=== PATIENT | male | born 1955 | race Caucasian/White ===

== ENCOUNTER → 2020-09-14 | Outpatient (CLI) | payer BC, MEDICARE ==
[2020-09-14 14:00] LABS: African American GFR (CKD) >90 (>60 ml/min/1.73 sqM); Blood Urea Nitrogen 11 mg/dL (9-20); Non-African American GFR(CKD) >90 (>60 ml/min/1.73 sqM)
--- NOTE | 2020-09-14 16:16 | CT ---
EXAMINATION TYPE: CT abdomen pelvis w con DATE OF EXAM: 09/14/2020 COMPARISON: None. HISTORY: RUQ pain x [address] DLP: 1711.10 mGycm, Automated Exposure Control for Dose Reduction was Utilized. CONTRAST: CT scan of the abdomen and pelvis is performed without oral and with IV Contrast, patient injected wi th 100ml mL of Isovue 300. FINDINGS: LUNG BASES: [id number] linear scarring and/or atelectasis posterior left lung base. LIVER/GB: Cholecystectomy clips. PANCREAS: No significant abnormality is seen. SPLEEN: No significant abnormality is seen. ADRENALS: No significant abnormality is seen. KIDNEYS: Symmetric cortical medullary uptake and excretion without hydronephrosis seen bilaterally. T here is 4.0 cm thin-walled cyst in the left kidney mid to lower pole level series 5 image 44. BOWEL: Surgical sutures from partial proximal colectomy and small bowel anastomosis. No suspicious sm all or large bowel dilatation. PROSTATE/SEMINAL VESICLES: Normal-sized prostate. LYMPH NODES: No greater than 1cm abdominal or pelvic lymph nodes are appreciated. OSSEOUS STRUCTURES: No significant abnormality is seen. OTHER: There is large [place] ventral wall hernia containing fat and mesenteric vessels along with small and large bowel loops extending left of midline above the umbilicus. There is vertical midline scar near level of umbilicus extending inferiorly. There are tiny peripheral clips from prior surgica l repair. Second smaller eventration right infraumbilical level axial image 67 noted. Prominent collateral vessels in the left upper to mid abdomen are identified. IMPRESSION: Large [place] fat wall hernia superior to umbilicus site of prior attempted surgical re pair. Prominent collateral vessels left upper to mid abdomen of uncertain etiology and clinical signi ficance. No acute findings clearly seen to account for patient's symptoms of right upper quadrant guanako n.
== END | disposition home or self-care (01) ==
LOC: RADCTMAIN 13:18
PROVIDERS: ATTEND Internal Medicine
DX: K43.9 Ventral hernia without obstruction or gangrene (principal)
CPT/HCPCS: 82565; 84520; 74177; 36415; Q9967

== ENCOUNTER → 2022-10-31 | Outpatient (CLI) | payer MEDICARE ==
[2022-10-31 10:03] VITALS: BP 137/76; PULSE 86; RESP 16; TEMP 98.1
--- NOTE | 2022-10-31 14:31 | P.PAINPG ---
PQRS Measure Charge Sheet Comment: HISTORY OF PRESENT ILLNESS: 67 yr old male w at side as a referral from Dr Ana Samayoa presents today w severe and chronic RUQ abdominal pain secondary to Trauma from abdominal adhesions for evaluation. Pt states pain level is provoked at 7 /10 in intensity, constant, localized in the RUQ, sharp in character w shooting pain towards the epigastric / LUQ as well as the back. Pain is provoked by standing bending or walking. Pain is alleviated by PT x -12 wks in 2021, heat, mediations (Neurontin, Tyl), CBD edibles, topical, repositioning and rest. Oswestry axial pain score at 31. PMH: OA, HTN, Portal Vein HTN, DM II, GERD, IBS, Vitamin D Deficiency PSH: Abdominal Hernia Repair, Vental Wall Hernia Repair, Cholecystitis SH: Hx of Tobacco use, Hx of ETOH use, No illicit drg use. . FH: Noncontributory All: See list Meds: See list REVIEW OF ORGAN SYSTEMS: CONSTITUTIONAL: No fevers or chills. No recent weight loss. NEUROLOGICAL: + numbness and tingling along the distal extremities. No seizure disorders or headaches. MUSCULOSKELETAL: + pain PSYCHIATRIC: Denies current depression or suicidal thoughts. Physical Examinations : Constitutional : Cooperative , not in acute distress . Neurologic : Cranial nerve II to XII intact. No focal neurological deficits. Psychiatric : alert & oriented x 3. Matching mood & appropriate affect. Judgment & insight intact. Musculoskeletal : RUQ TTP Cervical Spine Motor strength in the deltoid and biceps: Normal right side. Normal Left side Motor strength biceps and the wrist extensors: Normal right side . Normal left side Motor strength in the triceps muscle: Normal right side. Normal left side Deep tendon reflexes: Normal at the biceps. Normal at Brachioradialis. Normal at triceps Vertebral body tenderness to deep palpation over Cervical facet loading test: positive bilaterally Spurling test: positive bilaterally Neck distraction test: positive bilaterally Janice sign: positive bilaterally Lumbar spine Motor strength lower extremities ,thigh and legs 5/5 Right side , 5/5 Left side Deep tendon reflexes : Normal Knee Jerk. Normal Ankle Jerk Vertebral body tenderness over Lindsey Test positive Lumbar facet Loading Test: positive Right / positive Left Range of motion of the lumbar spine Flexion 30 degrees, extension 10 degrees Straight Leg Raise test: Left/ Right positive at degree Ryan test: positive right / positive left. Severe tenderness over the Sacroiliac joint on the Right / Left sides Gaenslen test: positive bilaterally Seated flexion test: positive bilaterally. Sacral spine : Severe tenderness over the Sacroiliac joint: right side / left side Range of motion: Flexion of the lumbar spine <60 degrees Range of motion: Extension of the lumbar spine <20 degrees Gaenslen's Test positive Pasquale's Test positive Ryan test: positive right side / left side Thigh Thrust Test Sacral Thrust Test Imaging: CT with contrast of the abdomen from 09/22/22 reviewed Assessment/ Plan : RUQ pain secondary to abdominal trauma, adhesions Recommendation of David RIOS. May need a series of injections for optimal pain relief. Risks, benefits of procedure discussed and patient verbalized understanding. Admits to aspirin or anti- coagulant use or medical history of diabetes. Protocol for discontinuation/ continuation of medications jennifer procedure discussed. Minimal anesthesia provided, if clinically indicated, consisting of Versed and Fentanyl. All questions answered. I have spent greater than 30 minutes on patient care today. Dr Chatterjee was available by phone for the evaluation of this patient. The time was used to review the medical records including relevant urine studies and Prescription hi story (MAPs), review of the available imaging, evaluation and examination of the patient, coordination of care with the medical staff and if applicable referring physicians, as well as creation of the medical record Controlled Substance Measures - Controlled Substance Measures Is patient prescribed a controlled substance at discharge?: Yes When asked, does pt state using other controlled substances?: Yes If prescribed controlled substance>3 days was MAPS reviewed?: Prescribed <3 Days If Rx opioid, was Start Talking consent form obtained?: Yes If opioid is for acute pain is fill amount 7 days or less?: Yes Was information provided regarding opioid addiction?: Yes
== END ==
LOC: PNWHC3 09:01
PROVIDERS: ATTEND Specialist
DX: K66.0 Peritoneal adhesions (postprocedural) (postinfection) (principal); M19.90 Unspecified osteoarthritis, unspecified site; E11.9 Type 2 diabetes mellitus without complications; K21.9 Gastro-esophageal reflux disease without esophagitis; K76.6 Portal hypertension; Z88.0 Allergy status to penicillin; Z91.011 Allergy to milk products; Z88.8 Allergy status to other drugs, medicaments and biological substances; Z79.899 Other long term (current) drug therapy; Z79.4 Long term (current) use of insulin; Z79.01 Long term (current) use of anticoagulants; S39.91XA Unspecified injury of abdomen, initial encounter; X58.XXXA Exposure to other specified factors, initial encounter
CPT/HCPCS: 99211

== ENCOUNTER → 2022-11-15 | Day surgery (SDC) | payer MEDICARE ==
[~2022-11-15] MED LIST: IOPAMIDOL M200 10 ML VIAL ONE; LACTATED RINGERS 1,000 ML IV ONE; LACTATED RINGERS 1,000 ML IV SCH; LIDOCAINE 1% (10MG/ML) FOR IV START INTRADERMA PRN; MIDAZOLAM 2 MG/2 ML VIAL ONE; ROPIVACAINE 5 MG/ML 20 ML AMPULE ONE; fentaNYL (PF) 50 MCG/ML 2 ML AMP ONE; methylPREDNISolone ACETATE 40 MG/ML 1 ML VIAL ONE
[2022-11-15 07:36] VITALS: TEMP 97.5
[2022-11-15 07:38] LABS: Glucose,Whole Blood 147 mg/dL (70-110)
[2022-11-15 07:47] LABS: INR 1.1 (<1.2); Prothrombin Time 11.3 sec (9.0-12.0)
--- NOTE | 2022-11-15 09:27 | P.PCN ---
Date of Procedure: 11/15/22 Procedure(s) Performed: PREOPERATIVE DIAGNOSIS: Chronic severe abdominal pain. Secondary to abdominal adhesions POSTOPERATIVE DIAGNOSIS: Chronic severe abdominal pain. Secondary to abdominal adhesions PROCEDURE: Diagnostic celiac plexus block under fluoroscopy guidance (fluoroscopy images available in the audiology Department ) ANESTHESIA: Moderate sedation with Versed 3 mg and Fentanyl 100 Mcg , sedation started 08:38, and ended at 08:52 EBL: Minimal PROCEDURE INDICATION: The patient has a history of abdominal pain secondary to multiple abdominal surgery with the scar tissue that is non responsive to more conservative treatments. PROCEDURE DESCRIPTION: The patient was seen and identified in the preoperative area. Risks, benefits, complications, and alternatives were discussed with the patient. The patient agreed to proceed with the procedure and signed the consent. IV was started, and vital signs were stable.Patient was taken to the OR and time out was completed.The patient was placed in the prone position on procedure table and a pillow was placed under the abdomen to reduce lumbar lordosis. The lumbosacral area was prepped and draped in the usual sterile fashion. Critical pause was taken. Vital signs were closely monitored during the procedure. Conscious sedation was used during the procedure to decrease patients anxiety. The procedure was performed in a similar fashion on the right side and on the left side. Using anterior-posterior fluoroscopy, the L1 spinous process and vertebral body were identified. Then, the fluoroscope was turned obliquely until the transverse process of L1 vertebra was totally behind the L1 vertebral body. Skin was then marked and infiltrated with Lidocaine 1% subcutaneously with a 25-guage needle at the level of the L1 vertebral body. Subsequently, a 20-guage 6 -inch spinal needles was inserted and advanced toward anterior side of the L1 vertebral body under oblique fluoroscopic guidance and while keeping a ``tunnel view of the needle. Subsequently, 3 ml of the water soluble dye Omnipaque was injected under life fluoroscopy to confirm needle position. The spread of the dye along the anterior side of the L1 vertebral body was verified with AP and latter fluoroscopy. After satisfactory positioning of the needle and negative aspiration for CSF, blood, or any other contents, a total of 15 mL of 0.25 % preservative-free ropivacaine mixed with 20 mg of Depo-Medrol was injected with 5 ml increments and intermittent aspiration. Washout of the dye was seen and the needle was then withdrawn intact. Procedure was done bilaterally using the same technique on the right and left sides. A total of 30 ml of 0.25% preservative- free ropivacaine was used during the procedure.At the end of the procedure, the operated areas were cleaned. Band-Aids were applied. COMPLICATIONS: None DISPOSITION / PLANS: The patient was placed in a supine position and transferred to the recovery area in a stable condition for observation and was discharged from the recovery room after meeting discharge criteria.Home discharge instructions given to the patient by the staff.The patient was reexamined prior to discharge. We will schedule a neurolytic block in one week if patient has more than 50% pain relief from this block.
[2022-11-15 09:48] VITALS: BP 117/64; PULSE 77; RESP 14
--- NOTE | 2022-11-15 10:17 | FL ---
Intraoperative/procedural fluoroscopic services were provided. Total fluoroscopy time is 16 seconds w ith a total of 4 submitted images to PACS. Please see the operative/procedural note for further detai ls. DAP: [id number] mGym2
== END ==
LOC: ORPAIN 07:07
PROVIDERS: ATTEND Specialist
DX: G89.29 Other chronic pain (principal); F41.9 Anxiety disorder, unspecified; K66.0 Peritoneal adhesions (postprocedural) (postinfection); Z88.0 Allergy status to penicillin; R10.13 Epigastric pain
CPT/HCPCS: 85610; 64530; 99152; 99153; J2250; J1030; J3010; Q9966; J2795

== ENCOUNTER → 2022-12-08 | Outpatient (CLI) | payer MEDICARE ==
[2022-12-08 09:32] VITALS: BP 134/82; PULSE 76; RESP 15; TEMP 98.2
--- NOTE | 2022-12-08 13:10 | P.PAINPG ---
Objective - Vital Signs Vital signs: Intake & Output 12/07/22 12/08/22 12/08/22 18:59 06:59 18:59 Weight 119.295 kg PQRS Measure Charge Sheet Comment: HISTORY OF PRESENT ILLNESS: 67 yr old male w at side presents today w severe and chronic L hip pain secondary to OA for evaluation. Pt underwent a celiac plexus nerve blocks and states he experienced 70% pain relief for the last 3 wks s/p procedure. Pt states pain level is provoked at 10 /10 in intensity, constant, localized in the L hip, achy in character without shooting pain. Pain is provoked by sitting. Pain is alleviated by PT x -12 wks in 2021, heat, medications, CBD edibles, topical, repositioning and rest. Oswestry axial pain score at 23. Interventional procedures include celiac plexus nerve block x1 Medications include Neurontin, Tyl REVIEW OF ORGAN SYSTEMS: CONSTITUTIONAL: No fevers or chills. No recent weight loss. NEUROLOGICAL: + numbness and tingling along the distal extremities. No seizure disorders or headaches. MUSCULOSKELETAL: + pain PSYCHIATRIC: Denies current depression or suicidal thoughts. Physical Examinations : Constitutional : Cooperative , not in acute distress . Neurologic : Cranial nerve II to XII intact. No focal neurological deficits. Psychiatric : alert & oriented x 3. Matching mood & appropriate affect. Judgment & insight intact. Musculoskeletal : Cervical Spine Motor strength in the deltoid and biceps: Normal right side. Normal Left side Motor strength biceps and the wrist extensors: Normal right side . Normal left side Motor strength in the triceps muscle: Normal right side. Normal left side Deep tendon reflexes: Normal at the biceps. Normal at Brachioradialis. Normal at triceps Vertebral body tenderness to deep palpation over Cervical facet loading test: positive bilaterally Spurling test: positive bilaterally Neck distraction test: positive bilaterally Janice sign: positive bilaterally Lumbar spine Motor strength lower extremities ,thigh and legs 5/5 Right side , 5/5 Left side Deep tendon reflexes : Normal Knee Jerk. Normal Ankle Jerk Vertebral body tenderness over Lindsey Test positive Lumbar facet Loading Test: positive Right / positive Left Range of motion of the lumbar spine Flexion 30 degrees, extension 10 degrees Straight Leg Raise test: Left/ Right positive at degree Ryan test: positive right / positive left. Severe tenderness over the Sacroiliac joint on the Right / Left sides Gaenslen test: positive bilaterally Seated flexion test: positive bilaterally. Sacral spine : Severe tenderness over the Sacroiliac joint: right side / left side Range of motion: Flexion of the lumbar spine <60 degrees Range of motion: Extension of the lumbar spine <20 degrees Gaenslen's Test positive on L Ryan test: positive right side / left side Thigh Thrust Test positive on L Sacral Thrust Test Imaging: CT with contrast of the abdomen from 09/22/22 reviewed Assessment/ Plan : L hip pain secondary to OA Recommendation of L SI injection. May need a series of injections for optimal pain relief. Risks, benefits of procedure discussed and patient verbalized understanding. Admits to aspirin or anti- coagulant use or medical history of diabetes. Protocol for discontinuation/ continuation of medications jennifer procedure discussed. Minimal anesthesia provided, if clinically indicated, consisting of Versed and Fentanyl. All questions answered. I have spent greater than 30 minutes on patient care today. Dr Chatterjee was available by phone for the evaluation of this patient. The time was used to review the medical records including relevant urine studies and Prescription history (MAPs), review of the available imaging, evaluation and examination of the patient, coordination of care with the medical staff and if applicable referring physicians, as well as creation of the medical record PQRS Narrative: Hx Alcohol Use (MH) No Home Medications: Ambulatory Orders Acetaminophen [Tylenol Arthritis] 650 mg PO HS PRN 10/31/22 Acetaminophen-Codeine 300-30mg [Tylenol w/codeine #3] 1 tab PO Q4H PRN 3 Days #18 tablet 10/31/22 Atorvastatin [Lipitor] 10 mg PO HS 10/31/22 Cholestyramine (with Sugar) [Cholestyramine Packet] 4 gm PO BID 10/31/22 Dapagliflozin Propanediol [Farxiga] 10 mg PO DAILY 10/31/22 Dicyclomine [Bentyl] 20 mg PO BID 10/31/22 Exenatide Microspheres [Bydureon Bcise Auto-Injector] 2 mg SQ Q7D 10/31/22 Gabapentin [Neurontin] 300 mg PO TID 10/31/22 Hyoscyamine Sulfate [Levsin] 0.125 mg PO Q4HR PRN 10/31/22 Insulin Glargine,Hum.rec.anlog [Basaglar Kwikpen U-100] 35 unit SQ BID 10/31/22 Insulin Lispro [humaLOG Kwikpen] 10 unit SQ AC-BID 10/31/22 Magnesium Oxide [Magnesium] 500 mg PO TID 10/31/22 Meclizine [Antivert] 25 mg PO DIRECTED PRN 10/31/22 Metoprolol Succinate (ER) [Toprol Xl] 50 mg PO DAILY 10/31/22 Omeprazole [PriLOSEC] 20 mg PO AC-BID 10/31/22 Pioglitazone [Actos] 15 mg PO DAILY 10/31/22 Warfarin [Coumadin] 5 mg PO DAILY 10/31/22 azaTHIOprine [Imuran] 100 mg PO DAILY 10/31/22 hydrOXYzine HCL [Atarax] 50 mg PO HS PRN 10/31/22 ondansetron HCL [Zofran] 8 mg PO Q8HR PRN 10/31/22 Controlled Substance Measures - Controlled Substance Measures Is patient prescribed a controlled substance at discharge?: No
== END ==
LOC: PNWHC3 09:04
PROVIDERS: ATTEND Specialist
DX: M16.12 Unilateral primary osteoarthritis, left hip (principal); Z91.018 Allergy to other foods; Z88.0 Allergy status to penicillin; Z91.011 Allergy to milk products; Z91.048 Other nonmedicinal substance allergy status
CPT/HCPCS: 99211

== ENCOUNTER → 2023-01-19 | Outpatient (CLI) | payer MEDICARE ==
[2023-01-19 11:59] VITALS: BP 143/81; PULSE 75; RESP 16; TEMP 98.4
== END ==
LOC: PNWHC3 11:19
PROVIDERS: ATTEND Specialist
DX: M46.1 Sacroiliitis, not elsewhere classified (principal); Z88.8 Allergy status to other drugs, medicaments and biological substances; Z88.0 Allergy status to penicillin; Z91.011 Allergy to milk products
CPT/HCPCS: 99211

== ENCOUNTER 2023-03-28 15:33 | Emergency (ER) | payer MEDICARE ==
--- NOTE | 2023-03-28 16:17 | ED ---
Abdominal Pain HPI - General Source: patient, RN notes reviewed <Nicole Blakely - Last Filed: 03/28/23 16:17> - General Source: patient, RN notes reviewed Mode of arrival: ambulatory Limitations: no limitations - History of Present Illness MD Complaint: abdominal pain <Alicia Moore - Last Filed: 03/29/23 19:48> - General Chief Complaint: Abdominal Pain Stated Complaint: Abd Pain Time Seen by Provider: 03/28/23 16:17 - History of Present Illness Initial Comments: Patient is a 67-year-old male presented ER with chief complaint of back pain that radiates to his abdomen. Patient reports it feels like something has popped in his back. Patient does report that he has a history of a kidney cyst. Patient denies any fevers, chills, night sweats, placenta paresthesias, IV drug use, bowel or bladder incontinent. (Nicole Blakely) This is a 67-year-old male who presents to the emergency department for abdominal pain. States that this is in the right mid back and wraps around to the right mid abdomen. He does have associated nausea and vomiting, and took Zofran in the waiting room which he felt was helpful. He has a history of kidney cysts, but denies any history of kidney stones. He has no changes in urinary or bowel habits. Reports an extensive surgical history related to Crohn's disease, which has been managed at the [facility]. He no longer has his gallbladder or appendix. He does have a large hernia as a result of multiple surgeries. (Alicia Moore) - Related Data Home Medications Medication Instructions Recorded Confirmed Acetaminophen [Tylenol Arthritis] 650 mg PO HS PRN 10/31/22 01/19/23 Atorvastatin [Lipitor] 10 mg PO HS 10/31/22 01/19/23 Cholestyramine (with Sugar) 4 gm PO BID 10/31/22 01/19/23 [Cholestyramine Packet] Dapagliflozin Propanediol [Farxiga] 10 mg PO DAILY 10/31/22 01/19/23 Dicyclomine [Bentyl] 10 mg PO BID 10/31/22 01/19/23 Exenatide Microspheres [Bydureon 2 mg SQ Q7D 10/31/22 01/19/23 Bcise Auto-Injector] Gabapentin [Neurontin] 300 mg PO TID 10/31/22 01/19/23 Hyoscyamine Sulfate [Levsin] 0.125 mg PO Q4HR PRN 10/31/22 01/19/23 Insulin Glargine,Hum.rec.anlog 35 unit SQ BID 10/31/22 01/19/23 [Basaglar Kwikpen U-100] Insulin Lispro [humaLOG Kwikpen] 10 unit SQ AC-BID 10/31/22 01/19/23 Magnesium Oxide [Magnesium] 500 mg PO TID 10/31/22 01/19/23 Meclizine [Antivert] 25 mg PO DIRECTED PRN 10/31/22 01/19/23 Metoprolol Succinate (ER) [Toprol 50 mg PO DAILY 10/31/22 01/19/23 Xl] Omeprazole [PriLOSEC] 20 mg PO AC-BID 10/31/22 01/19/23 Pioglitazone [Actos] 15 mg PO DAILY 10/31/22 01/19/23 Warfarin [Coumadin] 5 mg PO DAILY 10/31/22 01/19/23 azaTHIOprine [Imuran] 100 mg PO DAILY 10/31/22 01/19/23 hydrOXYzine HCL [Atarax] 50 mg PO HS PRN 10/31/22 01/19/23 ondansetron HCL [Zofran] 8 mg PO Q8HR PRN 10/31/22 01/19/23 Previous Rx's Medication Instructions Recorded Ibuprofen 800 mg PO Q8H PRN #30 tab 03/29/23 methocarbamoL [Robaxin-750] 1,500 mg PO TID PRN #30 tab 03/29/23 Allergies Allergy/AdvReac Type Severity Reaction Status Date / Time capsaicin [From Capzasin] Allergy EXTREME Verified 03/28/23 16:35 BURNING,RED WELTING PAIN menthol [From Capzasin] Allergy EXTREME Verified 03/28/23 16:35 BURNING,RED WELTING PAIN Penicillins Allergy HIVES & Verified 03/28/23 16:35 SWELLING lactose AdvReac Diarrhea Verified 03/28/23 16:35 Review of Systems ROS Other: All systems not noted in ROS Statement are negative. <Nicole Blakely - Last Filed: 03/28/23 16:17> ROS Other: All systems not noted in ROS Statement are negative. <Alicia Moore - Last Filed: 03/29/23 19:48> ROS Statement: Those systems with pertinent positive or pertinent negative responses have been documented in the HPI. Past Medical History Past Medical History: Cancer, Diabetes Mellitus, Eye Disorder, GERD/Reflux, Liver Disease, Pulmonary Embolus (PE) Additional Past Medical History / Comment(s): heart rate issues per he gets short of breath with ambulation at times , crohn's, non alcholic cirrohis, legally blind,squamous cell carcinomas removed, pe crohn's surgery, pain radiating rt abdomen thru back and now going down his left leg. History of Any Multi-Drug Resistant Organisms: MRSA Date of last positivie culture/infection: 2013 MDRO Source:: abdomen Past Surgical History: Hernia Repair Additional Past Surgical History / Comment(s): crohn's surgery x4, fatty tumor from leg , Past Anesthesia/Blood Transfusion Reactions: No Reported Reaction Additional Psychological History / Comment(s): claustraphobic Smoking Status: Former smoker Past Alcohol Use History: None Reported Additional Past Alcohol Use History / Comment(s): quit smoking 2019, Past Drug Use History: Marijuana Additional Drug Use History / Comment(s): cbd gummies refrain 24 hours prior to procedure - Past Family History Mother Family Medical History: Cancer, Deep Vein Thrombosis (DVT) Additional Family Medical History / Comment(s): skin Brother(s) Family Medical History: Cancer Additional Family Medical History / Comment(s): esophageal,prostate <Nicole Blakely - Last Filed: 03/28/23 16:17> General Exam General appearance: alert, in no apparent distress <Nicole Blakely - Last Filed: 03/28/23 16:17> General appearance: alert, in no apparent distress Head exam: Present: atraumatic, normocephalic, normal inspection Respiratory exam: Present: normal lung sounds bilaterally. Absent: respiratory distress, wheezes, rales, rhonchi, stridor Cardiovascular Exam: Present: regular rate, normal rhythm, normal heart sounds. Absent: systolic murmur, diastolic murmur, rubs, gallop, clicks GI/Abdominal exam: Present: soft, tenderness (RUQ and right mid abdomen). Absent: distended Back exam: Present: CVA tenderness (R) Neurological exam: Present: alert, oriented X3, CN II-XII intact Psychiatric exam: Present: normal affect, normal mood Skin exam: Present: warm, dry, intact, normal color. Absent: rash <Alicia Moore - Last Filed: 03/29/23 19:48> Course Vital Signs 03/28/23 03/29/23 03/29/23 16:32 01:24 03:32 Temperature 98.2 F Pulse Rate 68 73 77 Respiratory 18 18 18 Rate Blood Pressure 124/73 152/82 147/79 O2 Sat by Pulse 95 93 L 93 L Oximetry Medical Decision Making <Nicole Blakely - Last Filed: 03/28/23 16:17> - Lab Data Result diagrams: 03/28/23 16:36 03/28/23 16:36 - Radiology Data Radiology results: report reviewed, image reviewed <Alicia Moore - Last Filed: 03/29/23 19:48> - Medical Decision Making I performed the quick note portion of the exam. Electronically signed by Nicole Blakely PA-C (Nicole Blakely) This is a 67-year-old male who presents to the emergency department for abdominal and flank pain. Was pt. sent in by a medical professional or institution? @ -No Did you speak to anyone other than the patient for history? @ -No Did you review nursing and triage notes? @ -Yes, and I agree, it is accurate with regards to the patient's symptoms. Were old charts reviewed? @ -No Differential Diagnosis? @ -Differential Abdominal Pain Men: Appendicitis, cholecystitis, diverticulosis, ischemic bowel, pancreatitis, hepatitis, UTI, gastroenteritis, AAA, incarcerated hernia, bowel obstruction, constipation, inflammatory bowel, hepatitis, peptic ulcer disease, splenic infarction, perforated viscus, testicular torsion, this is not meant to be an all-inclusive list EKG interpreted by me (3pts min.)? @ -EKG interpreted by me demonstrating the following: Sinus rhythm. Ventricular rate 67 bpm, AK interval 309 ms, QRS duration 84 ms, QTC 418 ms. X-rays interpreted by me (1pt min.)? @ -Not obtained CT interpreted by me (1pt min.)? @ -Computed tomography scan of the abdomen and pelvis obtained. My interpretation identifies no evidence of a ureteral calculus. U/S interpreted by me (1pt. min.)? @ -Not obtained What testing was considered but not performed? (CT, X-rays, U/S, labs)? Why? @ -None What meds were considered but not given? Why? @ -None Did you discuss the management of the patient with other professionals? @ -No Did you reconcile home meds? @ -No Was smoking cessation discussed for >3mins.? @ -No Was critical care preformed (if so, how long)? @ -No Were there social determinants of health that impacted care today? How? (Homelessness, low income, unemployed, alcoholism, drug addiction, transportation, low edu. Level, literacy, decrease access to med. care, retirement, rehab)? @ -No Was there de-escalation of care discussed even if they declined? (Discuss DNR or withdrawal of care, Hospice)? @ -No What co-morbidities impacted this encounter? (DM, HTN, Smoking, COPD, CAD, Cancer, CVA, Hep., AIDS, mental health diagnosis, sleep apnea, morbid obesity)? @ -Crohn's disease Was patient admitted / discharged? @ -Discharged. Lab work obtained and found to be unremarkable. Urinalysis negative for signs of infection. Computed tomography scan of the abdomen and pelvis obtained revealing no acute process, including no evidence of a ureteral calculus or inflammatory changes related to the Crohn's disease. Discussed with the patient that the cause of his symptoms is not entirely clear. He did note episodes that felt like a cramping or muscle spasm. Because of this advised that we can try a course of muscle relaxants to see if that offers any benefit. He was given a prescription for ibuprofen and Robaxin with dosing instructions reviewed for additional symptomatic management. Otherwise advised close follow- up with his primary care provider. Undiagnosed new problem with uncertain prognosis? @ -None Drug Therapy requiring intensive monitoring for toxicity (Heparin, Nitro, Insulin, Cardizem)? @ -None Were any procedures done? @ -None Diagnosis/symptom? @ -Abdominal pain Acute, or Chronic, or Acute on Chronic? @ -Acute Uncomplicated (without systemic symptoms) or Complicated (systemic symptoms)? @ -Uncomplicated Side effects of treatment? @ -None Exacerbation, Progression, or Severe Exacerbation] @ -Not applicable Poses a threat to life or bodily function? @ -No Return precautions reviewed in depth, the patient is instructed to return to the emergency department with any new, worsening, or concerning symptoms. Patient verbalized understanding. This case was discussed in detail with the attending ED physician, Dr. Bower. Presentation, findings, and treatment plan discussed in detail as well. (Alicia Moore) - Lab Data Lab Results 03/28/23 03/28/23 03/28/23 Range/Units 16:36 16:36 16:36 WBC 4.9 (3.8-10.6) k/uL RBC 4.32 (4.30-5.90) m/uL Hgb 13.9 (13.0-17.5) gm/dL Hct 40.6 (39.0-53.0) % MCV 94.0 (80.0-100.0) fL MCH 32.3 (25.0-35.0) pg MCHC 34.3 (31.0-37.0) g/dL RDW 15.9 H (11.5-15.5) % Plt Count 96 L (150-450) k/uL MPV 9.2 Sodium 141 (137-145) mmol/L Potassium 3.9 (3.5-5.1) mmol/L Chloride 107 (98-107) mmol/L Carbon Dioxide 20 L (22-30) mmol/L Anion Gap 14 mmol/L BUN 13 (9-20) mg/dL Creatinine 0.69 (0.66-1.25) mg/dL Est GFR (CKD-EPI)AfAm >90 (>60 ml/min/1.73 sqM) Est GFR (CKD-EPI)NonAf >90 (>60 ml/min/1.73 sqM) Glucose 203 H (74-99) mg/dL Plasma Lactic Acid Lionel 1.7 (0.7-2.0) mmol/L Calcium 8.5 (8.4-10.2) mg/dL Total Bilirubin 1.5 H (0.2-1.3) mg/dL AST 29 (17-59) U/L ALT 23 (4-49) U/L Alkaline Phosphatase 69 (38-126) U/L Total Protein 6.7 (6.3-8.2) g/dL Albumin 3.9 (3.5-5.0) g/dL Urine Color Urine Appearance (Clear) Urine pH (5.0-8.0) Ur Specific Mary D (1.001-1.035) Urine Protein (Negative) Urine Glucose (UA) (Negative) Urine Ketones (Negative) Urine Blood (Negative) Urine Nitrite (Negative) Urine Bilirubin (Negative) Urine Urobilinogen (<2.0) mg/dL Ur Leukocyte Esterase (Negative) 03/28/23 Range/Units 16:46 WBC (3.8-10.6) k/uL RBC (4.30-5.90) m/uL Hgb (13.0-17.5) gm/dL Hct (39.0-53.0) % MCV (80.0-100.0) fL MCH (25.0-35.0) pg MCHC (31.0-37.0) g/dL RDW (11.5-15.5) % Plt Count (150-450) k/uL MPV Sodium (137-145) mmol/L Potassium (3.5-5.1) mmol/L Chloride (98-107) mmol/L Carbon Dioxide (22-30) mmol/L Anion Gap mmol/L BUN (9-20) mg/dL Creatinine (0.66-1.25) mg/dL Est GFR (CKD-EPI)AfAm (>60 ml/min/1.73 sqM) Est GFR (CKD-EPI)NonAf (>60 ml/min/1.73 sqM) Glucose (74-99) mg/dL Plasma Lactic Acid Lionel (0.7-2.0) mmol/L Calcium (8.4-10.2) mg/dL Total Bilirubin (0.2-1.3) mg/dL AST (17-59) U/L ALT (4-49) U/L Alkaline Phosphatase (38-126) U/L Total Protein (6.3-8.2) g/dL Albumin (3.5-5.0) g/dL Urine Color Yellow Urine Appearance Clear (Clear) Urine pH 5.5 (5.0-8.0) Ur Specific Mary D 1.034 (1.001-1.035) Urine Protein Negative (Negative) Urine Glucose (UA) 4+ H (Negative) Urine Ketones Negative (Negative) Urine Blood Negative (Negative) Urine Nitrite Negative (Negative) Urine Bilirubin Negative (Negative) Urine Urobilinogen <2.0 (<2.0) mg/dL Ur Leukocyte Esterase Negative (Negative) Disposition <Nicole Blakely - Last Filed: 03/28/23 16:17> Is patient prescribed a controlled substance at d/c from ED?: Yes When asked, does pt state using other controlled substances?: No If prescribed controlled substance>3 days was MAPS reviewed?: Prescribed <3 Days <Alicia Moore - Last Filed: 03/29/23 19:48> Clinical Impression: Abdominal pain Disposition: HOME SELF-CARE Instructions (If sedation given, give patient instructions): Abdominal Pain (ED) Additional Instructions: Return to the emergency department with any new, worsening, or concerning symptoms. Alternate with ibuprofen and Tylenol as needed for pain relief. You can take the Robaxin as 1-2 tablets up to 3-4 times daily. Be aware that the Robaxin may make you drowsy and you should avoid driving or operating machinery when taking them. Follow up with your primary care provider in 1-2 days. Prescriptions: Ibuprofen 800 mg PO Q8H PRN #30 tab PRN Reason: Pain methocarbamoL [Robaxin-750] 1,500 mg PO TID PRN #30 tab PRN Reason: Pain Referrals: Ana Samayoa DO [Primary Care Provider] - 1-2 days
[2023-03-28 16:51] LABS: ALT 23 U/L (4-49); AST 29 U/L (17-59); African American GFR (CKD) >90 (>60 ml/min/1.73 sqM); Albumin 3.9 g/dL (3.5-5.0); Alkaline Phosphatase 69 U/L (38-126); Anion Gap 14 mmol/L; Blood Urea Nitrogen 13 mg/dL (9-20); Calcium 8.5 mg/dL (8.4-10.2); Carbon Dioxide 20 mmol/L (22-30); Chloride 107 mmol/L (98-107); Glucose 203 mg/dL (74-99); Non-African American GFR(CKD) >90 (>60 ml/min/1.73 sqM); Potassium 3.9 mmol/L (3.5-5.1); Sodium 141 mmol/L (137-145); Total Bilirubin 1.5 mg/dL (0.2-1.3); Total Protein 6.7 g/dL (6.3-8.2)
[2023-03-28 16:56] VITALS: RESP 18; TEMP 98.2
[2023-03-28 16:57] LABS: HCT 40.6 % (39.0-53.0); HGB 13.9 gm/dL (13.0-17.5); MCH 32.3 pg (25.0-35.0); MCHC 34.3 g/dL (31.0-37.0); Mean Platelet Volume 9.2; RBC 4.32 m/uL (4.30-5.90); RDW 15.9 % (11.5-15.5); WBC 4.9 k/uL (3.8-10.6)
[2023-03-28 17:06] LABS: Appearance,Urine Clear (Clear); Bilirubin,Urine Negative (Negative); Blood,Urine Negative (Negative); Color,Urine Yellow; Glucose,Urine (UA) 4+ (Negative); Ketones,Urine Negative (Negative); Leukocyte Esterase,Urine Negative (Negative); Nitrite,Urine Negative (Negative); PH, Urine 5.5 (5.0-8.0); Protein,Urine Negative (Negative); Specific Gravity,Urine 1.034 (1.001-1.035); Urobilinogen,Urine <2.0 mg/dL (<2.0)
[2023-03-28 17:34] LABS: Platelet Count 96 k/uL (150-450)
[2023-03-28] MEDS ORDERED: KETOROLAC 15 MG/ML 1 ML VIAL IVP STA (22:53)
[2023-03-28] MEDS ORDERED: MORPHINE SULFATE 4 MG/ML SYRINGE IVP STA (22:53)
[2023-03-28] MEDS ORDERED: SODIUM CHLORIDE 0.9% 1,000 ML IV STA (22:53)
[2023-03-29] MEDS ORDERED: HYDROmorphone 1 MG/ML 1 ML SYRINGE IVP STA (01:16)
--- NOTE | 2023-03-29 02:20 | CT ---
EXAM: CT Abdomen and Pelvis With Intravenous Contrast CLINICAL HISTORY: Right sided abdominal pain TECHNIQUE: Axial computed tomography images of the abdomen and pelvis with intravenous contrast. CTDI is 44.8 mGy and DLP is 2768.4 mGy-cm. This CT exam was performed using one or more of the following dose reduction techniques: automated exposure control, adjustment of the mA and/or kV according to patient size, and/or use of iterative reconstruction technique. COMPARISON: Previous exam September 14, 2020. FINDINGS: Lung bases: Unremarkable. No mass. No consolidation. ABDOMEN: Liver: Unremarkable. No mass. Gallbladder and bile ducts: Cholecystectomy. No ductal dilation. Pancreas: Unremarkable. No mass. No ductal dilation. Spleen: Borderline splenomegaly. Adrenals: Unremarkable. No mass. Kidneys and ureters: Unremarkable. No solid mass. No hydronephrosis. Stomach and bowel: There is a large, wide left anterior ventral hernia containing small bowel loops and colon. No mucosal thickening. PELVIS: Appendix: No findings to suggest acute appendicitis. Bladder: Unremarkable. No mass. Reproductive: Unremarkable as visualized. ABDOMEN and PELVIS: Intraperitoneal space: Unremarkable. No free air. No significant fluid collection. Bones/joints: No acute fracture. No dislocation. Soft tissues: See above. Vasculature: Extensive upper abdominal venous varices. No abdominal aortic aneurysm. Lymph nodes: Unremarkable. No enlarged lymph nodes. IMPRESSION: No acute findings in the abdomen or pelvis.
[2023-03-29] MEDS ORDERED: ORPHENADRINE 30 MG/ML 2 ML VIAL IVP STA (02:51)
[2023-03-29] MEDS ORDERED: LIDOCAINE 4% PATCH TOPICAL ONE (02:52)
[2023-03-29 03:44] VITALS: BP 147/79; PULSE 77
[2023-03-29] MEDS ORDERED: ONDANSETRON 4 MG ODT STARTER PACK 2 TAB BTL PO STA (03:59)
[2023-03-29] MEDS ORDERED: HYDROcodone/APAP 7.5-325MG 1 EACH TAB PO ONE (04:01)
== END 2023-03-29 05:31 | disposition home or self-care (01) ==
LOC: EC 15:33
DX: R10.11 Right upper quadrant pain (principal); K21.9 Gastro-esophageal reflux disease without esophagitis; E11.9 Type 2 diabetes mellitus without complications; Z87.891 Personal history of nicotine dependence; F12.90 Cannabis use, unspecified, uncomplicated; Z88.0 Allergy status to penicillin; Z91.011 Allergy to milk products; Z88.8 Allergy status to other drugs, medicaments and biological substances; Z79.4 Long term (current) use of insulin; Z79.84 Long term (current) use of oral hypoglycemic drugs; Z79.01 Long term (current) use of anticoagulants; Z79.899 Other long term (current) drug therapy
CPT/HCPCS: 36415; 93005 ×2; 80053; 83605; 85027; 81003; 74177; 99285; 96374; 96375 ×3; 96361; J2270; J2360; J1170; J1885; S0119; Q9967

== ENCOUNTER → 2023-04-20 | Outpatient (CLI) | payer MEDICARE ==
[2023-04-20 13:03] VITALS: BP 142/88; PULSE 79; RESP 15; TEMP 98.3
--- NOTE | 2023-04-20 14:30 | P.PAINPG ---
Objective - Vital Signs Vital signs: Intake & Output 04/19/23 04/20/23 04/20/23 18:59 06:59 18:59 Weight 117.934 kg PQRS Measure Charge Sheet Comment: HISTORY OF PRESENT ILLNESS: A 68 yr old male w at side presents today w severe and chronic LBP and L hip pain x 2 yrs secondary to DJD, DDD, spondylosis and facet arthropathy without myelopathy for evaluation. Pt states pain level is provoked at 8 /10 in intensity, constant, localized in the L lower lumbar spine, predominantly axial, sharp in character with occasional shooting pain towards the L hip and inner thigh. Pain is provoked by sitting or standing/ walking for periods >20 min. Pain is alleviated by PT x 12 wks in 2021, physician guided exercises/ stretches daily since 2021, heat, medications, CBD edibles, topical, repositioning and rest. Oswestry axial pain score of 25. Interventional procedures include celiac plexus nerve block x1, L SI x1 Medications include Neurontin, Robaxin, Ibu, Tyl REVIEW OF ORGAN SYSTEMS: CONSTITUTIONAL: No fevers or chills. No recent weight loss. NEUROLOGICAL: + numbness and tingling along the distal extremities. No seizure disorders or headaches. MUSCULOSKELETAL: + pain PSYCHIATRIC: Denies current depression or suicidal thoughts. Physical Examinations : Constitutional : Cooperative , not in acute distress . Neurologic : Cranial nerve II to XII intact. No focal neurological deficits. Psychiatric : alert & oriented x 3. Matching mood & appropriate affect. Judgment & insight intact. Musculoskeletal : Cervical Spine Motor strength in the deltoid and biceps: Normal right side. Normal Left side Motor strength biceps and the wrist extensors: Normal right side . Normal left side Motor strength in the triceps muscle: Normal right side. Normal left side Deep tendon reflexes: Normal at the biceps. Normal at Brachioradialis. Normal at triceps Vertebral body tenderness to deep palpation over Cervical facet loading test: positive bilaterally Spurling test: positive bilaterally Neck distraction test: positive bilaterally Janice sign: positive bilaterally Lumbar spine Motor strength lower extremities ,thigh and legs 5/5 Right side , 5/5 Left side Deep tendon reflexes : Normal Knee Jerk. Normal Ankle Jerk Vertebral body tenderness over Lindsey Test positive Lumbar facet Loading Test: positive Right / positive Left Range of motion of the lumbar spine Flexion 30 degrees, extension 10 degrees Straight Leg Raise test: Left/ Right positive at degree Ryan test: positive right / positive left. Severe tenderness over the Sacroiliac joint on the Right / Left sides Gaenslen test: positive bilaterally Seated flexion test: positive bilaterally. Sacral spine : Severe tenderness over the Sacroiliac joint: right side / left side Range of motion: Flexion of the lumbar spine <60 degrees Range of motion: Extension of the lumbar spine <20 degrees Gaenslen's Test positive on L Ryan test: positive right side / left side Thigh Thrust Test positive on L Sacral Thrust Test Imaging: CT with contrast of the abdomen from 09/22/22 reviewed Assessment/ Plan : L hip pain secondary to DJD, DDD, spondylosis and facet arthropathy without myelopathy Recommendation of L SI injection #2. May need a series of injections for optimal pain relief. Risks, benefits of procedure discussed and pt verbalized understanding. Protocol for discontinuation/ continuation of medications jennifer procedure discussed. All questions answered. I have spent greater than 30 minutes on patient care today. Dr Chatterjee was available by phone for the evaluation of this patient. The time was used to review the medical records including relevant urine studies and Prescription history (MAPs), review of the available imaging, evaluation and examination of the patient, coordination of care with the medical staff and if applicable referring physicians, as well as creation of the medical record PQRS Narrative: Hx Alcohol Use (MH) No Home Medications: Ambulatory Orders Acetaminophen [Tylenol Arthritis] 650 mg PO HS PRN 10/31/22 Atorvastatin [Lipitor] 10 mg PO HS 10/31/22 Cholestyramine (with Sugar) [Cholestyramine Packet] 4 gm PO BID 10/31/22 Dapagliflozin Propanediol [Farxiga] 10 mg PO DAILY 10/31/22 Dicyclomine [Bentyl] 10 mg PO BID 10/31/22 Exenatide Microspheres [Bydureon Bcise Auto-Injector] 2 mg SQ Q7D 10/31/22 Gabapentin [Neurontin] 300 mg PO TID 10/31/22 Hyoscyamine Sulfate [Levsin] 0.125 mg PO Q4HR PRN 10/31/22 Insulin Glargine,Hum.rec.anlog [Basaglar Kwikpen U-100] 35 unit SQ BID 10/31/22 Insulin Lispro [humaLOG Kwikpen] 10 unit SQ AC-BID 10/31/22 Magnesium Oxide [Magnesium] 500 mg PO TID 10/31/22 Meclizine [Antivert] 25 mg PO DIRECTED PRN 10/31/22 Metoprolol Succinate (ER) [Toprol Xl] 50 mg PO DAILY 10/31/22 Omeprazole [PriLOSEC] 20 mg PO AC-BID 10/31/22 Pioglitazone [Actos] 15 mg PO DAILY 10/31/22 Warfarin [Coumadin] 5 mg PO DAILY 10/31/22 azaTHIOprine [Imuran] 100 mg PO DAILY 10/31/22 hydrOXYzine HCL [Atarax] 50 mg PO HS PRN 10/31/22 ondansetron HCL [Zofran] 8 mg PO Q8HR PRN 10/31/22 Ibuprofen 800 mg PO Q8H PRN #30 tab 03/29/23 methocarbamoL [Robaxin-750] 1,500 mg PO TID PRN #30 tab 03/29/23 HYDROcodone/APAP 5-325MG [Baggs 5-325] 1 tab PO Q4HR PRN 3 Days #15 tab 04/10/23 Controlled Substance Measures - Controlled Substance Measures Is patient prescribed a controlled substance at discharge?: No
== END ==
LOC: PNWHC3 12:10
PROVIDERS: ATTEND Specialist
DX: M25.551 Pain in right hip (principal); M16.12 Unilateral primary osteoarthritis, left hip; M47.816 Spondylosis without myelopathy or radiculopathy, lumbar region; M51.36 Other intervertebral disc degeneration, lumbar region; Z88.0 Allergy status to penicillin; Z88.5 Allergy status to narcotic agent; Z91.018 Allergy to other foods; Z91.011 Allergy to milk products
CPT/HCPCS: 99211

== ENCOUNTER 2023-05-09 07:24 | Day surgery (SDC) | payer MEDICARE ==
[~2023-05-09 07:24] MED LIST changes: -IOPAMIDOL M200 10 ML VIAL ONE; -LACTATED RINGERS 1,000 ML IV ONE; -LIDOCAINE 1% (10MG/ML) FOR IV START INTRADERMA PRN; -MIDAZOLAM 2 MG/2 ML VIAL ONE; -ROPIVACAINE 5 MG/ML 20 ML AMPULE ONE; -fentaNYL (PF) 50 MCG/ML 2 ML AMP ONE; -methylPREDNISolone ACETATE 40 MG/ML 1 ML VIAL ONE
[2023-05-09 07:47] LABS: Glucose,Whole Blood 112 mg/dL (70-110)
[2023-05-09] MEDS ORDERED: methylPREDNISolone ACETATE 40 MG/ML 1 ML VIAL ONE (07:59)
[2023-05-09] MEDS ORDERED: IOPAMIDOL M200 10 ML VIAL ONE (07:59)
[2023-05-09] MEDS ORDERED: ROPIVACAINE 5MG/ML 20ML VIAL ONE (07:59)
[2023-05-09 08:04] VITALS: TEMP 98.3
--- NOTE | 2023-05-09 08:08 | P.PCN ---
Date of Procedure: 05/09/23 Description of Procedure: Procedure: Sacroiliac joint injection left Preoperative diagnosis: Sacroiliitis Postoperative diagnosis: Sacroiliitis Imaging: Fluoroscopy was used, images where saved to the medical record Complications: none ANESTHESIA: Local only Description of the procedure: procedure risk and benefits discussed with the patient, including but not limited, risk of infection and bleeding, and allergic reaction to the medication and incomplete pain relief. Patient agreed and sydnee d consent. Patient was taken to the room and placed in a prone position. Chlorhexidine was used to cleanse the skin. Under sterile conditions patient skin was anesthetized 1% lidocaine. Subcutane ous tissues were also anesthetized with a total 5 mL of 1% lidocaine. After that, a 22-gauge spinal needle was advanced through the anesthetized location under fluoroscopic guidance. Needle was advanced into the inferior portion of the sacroiliac joint. IV contrast was used to confirm spread within the joint. After adequate spread was achieved, 2.5 ML's of 0.5% ropivacaine with 40 mg of depomedrol was injected into the joint. Patient tolerated the procedure well. Sent to the recovery room in stable condition. Patient will follow up as directed. Restart Coumadin today, no need to stop Coumadin in the future for low risk procedures such as sacroiliac joint injections
--- NOTE | 2023-05-09 08:24 | FL ---
EXAMINATION TYPE: FL guided pain mgmt statistic DATE OF EXAM: 05/09/2023 HISTORY: Fluoroscopy time Total dose area product (DAP) in uGy*m?, mGy*cm? (or similar): 0.90717 IMPRESSION: 1. Fluoroscopy time.
[2023-05-09 08:31] LABS: Glucose,Whole Blood 127 mg/dL (70-110)
[2023-05-09 08:36] VITALS: BP 116/78; PULSE 75; RESP 18
== END 2023-05-09 08:39 | disposition home or self-care (01) ==
LOC: ORPAIN 07:24
PROVIDERS: ATTEND Hospitalist
DX: M46.1 Sacroiliitis, not elsewhere classified (principal); E11.9 Type 2 diabetes mellitus without complications; Z88.0 Allergy status to penicillin; Z88.6 Allergy status to analgesic agent; Z91.011 Allergy to milk products; Z79.01 Long term (current) use of anticoagulants
CPT/HCPCS: J1030; Q9966; J2795; G0260; 27096

== ENCOUNTER → 2023-05-10 | Outpatient (CLI) | payer MEDICARE ==
--- NOTE | 2023-05-10 14:58 | P.PAINPG ---
Objective - Vital Signs Vital signs: Intake & Output 05/09/23 05/10/23 05/10/23 18:59 06:59 18:59 Weight 136.985 kg PQRS Measure Charge Sheet Comment: HISTORY OF PRESENT ILLNESS: A 68 yr old male w at side presents today w severe and chronic LBP and L hip pain x 2 yrs secondary to DJD, DDD, spondylosis and facet arthropathy without myelopathy and Abd pain secondary to abd trauma and adhesions for evaluation. He underwent a L SI injection 1 day ago where he experienced 80% pain relief s/p procedure. Pt states pain level is provoked at 8 /10 in intensity, constant, localized in the abdomen, achy in character with occasional shooting pain towards the L abdomen. Pain is provoked by movement. Pain is alleviated by PT x 12 wks in 2021 (lumbar), physician guided exercises/ stretches daily since 2021 (lumbar), heat, medications, CBD edibles, topical, re positioning and rest. Oswestry axial pain score of 24 (lumbar). Interventional procedures include Celiac Plexus Nerve Block x1, L SI x1 Medications include [place], Neurontin, Robaxin, Ibu, Tyl REVIEW OF ORGAN SYSTEMS: CONSTITUTIONAL: No fevers or chills. No recent weight loss. NEUROLOGICAL: + numbness and tingling along the distal extremities. No seizure disorders or headaches. MUSCULOSKELETAL: + pain PSYCHIATRIC: Denies current depression or suicidal thoughts. Physical Examinations : Constitutional : Cooperative , not in acute distress . Neurologic : Cranial nerve II to XII intact. No focal neurological deficits. Psychiatric : alert & oriented x 3. Matching mood & appropriate affect. Judgment & insight intact. Musculoskeletal : Cervical Spine Motor strength in the deltoid and biceps: Normal right side. Normal Left side Motor strength biceps and the wrist extensors: Normal right side . Normal left side Motor strength in the triceps muscle: Normal right side. Normal left side Deep tendon reflexes: Normal at the biceps. Normal at Brachioradialis. Normal at triceps Vertebral body tenderness to deep palpation over Cervical facet loading test: positive bilaterally Spurling test: positive bilaterally Neck distraction test: positive bilaterally Janice sign: positive bilaterally Lumbar spine Motor strength lower extremities ,thigh and legs 5/5 Right side , 5/5 Left side Deep tendon reflexes : Normal Knee Jerk. Normal Ankle Jerk Vertebral body tenderness over Lindsey Test positive Lumbar facet Loading Test: positive Right / positive Left Range of motion of the lumbar spine Flexion 30 degrees, extension 10 degrees Straight Leg Raise test: Left/ Right positive at degree Ryan test: positive right / positive left. Severe tenderness over the Sacroiliac joint on the Right / Left sides Gaenslen test: positive bilaterally Seated flexion test: positive bilaterally. Sacral spine : Severe tenderness over the Sacroiliac joint: right side / left side Range of motion: Flexion of the lumbar spine <60 degrees Range of motion: Extension of the lumbar spine <20 degrees Gaenslen's Test positive on L Ryan test: positive right side / left side Thigh Thrust Test positive on L Sacral Thrust Test Imaging: CT with contrast of the abdomen from 09/22/22 reviewed Assessment/ Plan : L hip pain secondary to DJD, DDD, spondylosis and facet arthropathy without myelopathy, Abd Trauma s/p Adhesions Recommendation of Celiac Plexus Nerve Block #2. May need a series of injections for optimal pain relief. Risks, benefits of procedure discussed and pt verbalized understanding. Minimal IV sedation, including Versed and Fentanyl, i f clinically indicated. Protocol for discontinuation/ continuation of medications jennifer procedure discussed. All questions answered. I have spent greater than 30 minutes on patient care today. Dr Chatterjee was available by phone for the evaluation of this patient. The time was used to review the medical records including relevant urine studies and Prescription history (MAPs), review of the available imaging, evaluation and examination of the patient, coordination of care with the medical staff and if applicable referring physicians, as well as creation of the medical record PQRS Narrative: Hx Alcohol Use (MH) No Home Medications: Ambulatory Orders Acetaminophen [Tylenol Arthritis] 650 mg PO HS PRN 10/31/22 Atorvastatin [Lipitor] 10 mg PO HS 10/31/22 Dapagliflozin Propanediol [Farxiga] 10 mg PO DAILY 10/31/22 Exenatide Microspheres [Bydureon Bcise Auto-Injector] 2 mg SQ Q7D 10/31/22 Gabapentin [Neurontin] 300 mg PO TID 10/31/22 Hyoscyamine Sulfate [Levsin] 0.125 mg PO Q4HR PRN 10/31/22 Insulin Glargine,Hum.rec.anlog [Basaglar Kwikpen U-100] 35 unit SQ BID 10/31/22 Insulin Lispro [humaLOG Kwikpen] 10 unit SQ AC-BID 10/31/22 Magnesium Oxide [Magnesium] 500 mg PO TID 10/31/22 Meclizine [Antivert] 25 mg PO DIRECTED PRN 10/31/22 Metoprolol Succinate (ER) [Toprol Xl] 50 mg PO DAILY 10/31/22 Omeprazole [PriLOSEC] 20 mg PO AC-BID 10/31/22 Pioglitazone [Actos] 15 mg PO DAILY 10/31/22 Warfarin [Coumadin] 5 mg PO DAILY 10/31/22 azaTHIOprine [Imuran] 100 mg PO DAILY 10/31/22 hydrOXYzine HCL [Atarax] 50 mg PO HS PRN 10/31/22 ondansetron HCL [Zofran] 8 mg PO Q8HR PRN 10/31/22 Ibuprofen 800 mg PO Q8H PRN #30 tab 03/29/23 methocarbamoL [Robaxin-750] 1,500 mg PO TID PRN #30 tab 03/29/23 HYDROcodone/APAP 5-325MG [[place] 5-325] 1 tab PO Q4HR PRN 3 Days #15 tab 04/10/23 Escitalopram [Lexapro] 10 mg PO HS 05/04/23 Controlled Substance Measures - Controlled Substance Measures Is patient prescribed a controlled substance at discharge?: No
[2023-05-10 15:14] VITALS: BP 142/82; PULSE 89; RESP 15; TEMP 97.6
== END ==
LOC: PNWHC3 14:27
PROVIDERS: ATTEND Anesthesiology
DX: S39.91XA Unspecified injury of abdomen, initial encounter (principal); M51.9 Unspecified thoracic, thoracolumbar and lumbosacral intervertebral disc disorder; M19.90 Unspecified osteoarthritis, unspecified site; M25.552 Pain in left hip; M47.9 Spondylosis, unspecified; Z98.890 Other specified postprocedural states; Z91.018 Allergy to other foods; Z88.0 Allergy status to penicillin; Z88.8 Allergy status to other drugs, medicaments and biological substances; X58.XXXA Exposure to other specified factors, initial encounter
CPT/HCPCS: 99211

== ENCOUNTER 2023-05-25 07:23 | Day surgery (SDC) | payer MEDICARE ==
[2023-05-25 07:53] VITALS: RESP 18; TEMP 97.8
[2023-05-25] MEDS: LACTATED RINGERS 1,000 ML IV SCH (07:57)
[2023-05-25 07:58] LABS: Glucose,Whole Blood 109 mg/dL (70-110)
[2023-05-25 08:56] LABS: INR 1.3 (<1.2); Prothrombin Time 13.2 sec (10.0-12.5)
[2023-05-25] MEDS ORDERED: MIDAZOLAM 2 MG/2 ML VIAL ONE (09:16)
[2023-05-25] MEDS ORDERED: IOPAMIDOL M200 10 ML VIAL ONE (09:16)
[2023-05-25] MEDS ORDERED: ROPIVACAINE 5MG/ML 20ML VIAL ONE (09:16)
[2023-05-25] MEDS ORDERED: methylPREDNISolone ACETATE 40 MG/ML 1 ML VIAL ONE (09:16)
[2023-05-25] MEDS ORDERED: fentaNYL (PF) 50 MCG/ML 2 ML AMP ONE (09:16)
[2023-05-25] MEDS: IV FLUID CONTINUATION 1,000 ML IV ONE (09:46)
--- NOTE | 2023-05-25 09:57 | FL ---
EXAMINATION TYPE: FL guided pain mgmt statistic DATE OF EXAM: 05/25/2023 HISTORY: Fluoroscopy time Total dose area product (DAP) in uGy*m?, mGy*cm? (or similar): 0.52954 IMPRESSION: 1. Fluoroscopy time.
--- NOTE | 2023-05-25 10:18 | P.PCN ---
Date of Procedure: 05/25/23 Procedure(s) Performed: PREOPERATIVE DIAGNOSIS: Chronic severe abdominal pain. Secondary to abdominal adhesions POSTOPERATIVE DIAGNOSIS: Chronic severe abdominal pain. Secondary to abdominal adhesions PROCEDURE: Diagnostic celiac plexus block under fluoroscopy guidance (fluorosc opy images available in the audiology Department ) ANESTHESIA: Moderate sedation with Versed 2 mg and Fentanyl 200 Mcg , sedation started 09:16, and ended at 09:39 EBL: Minimal PROCEDURE INDICATION: The patient has a history of abdominal pain secondary to multiple abdominal surgery with the scar tissue that is non responsive to more conservative treatments. PROCEDURE DESCRIPTION: The patient was seen and identified in the preoperative area. Risks, benefits, complications, and alternatives were discussed with the patient. The patient agreed to proceed with the procedure and signed the consent. IV was started, and vital signs were stable.Patient was taken to the OR and time out was completed.The patient was placed in the prone position on procedure table and a pillow was placed under the abdomen to reduce lumbar lordosis. The lumbosacral area was prepped and draped in the usual sterile fashion. Critical pause was taken. Vital signs were closely monitored during the procedure. Conscious sedation was used during the procedure to decrease patients anxiety. The procedure was performed in a similar fashion on the right side and on the left side. Using anterior-posterior fluoroscopy, the L1 spinous process and vertebral body were identified. Then, the fluoroscope was turned obliquely until the transverse process of L1 vertebra was totally behind the L1 vertebral body. Skin was then marked and infiltrated with Lidocaine 1% subcutaneously with a 25-guage needle at the level of the L1 vertebral body. Subsequently, a 20-guage 6 -inch spinal needles was inserted and advanced toward anterior side of the L1 vertebral body under oblique fluoroscopic guidance and while keeping a ``tunnel view of the needle. Subsequently, 3 ml of the water soluble dye Omnipaque was injected under life fluoroscopy to confirm needle position. The spread of the dye along the anterior side of the L1 vertebral body was verified with AP and latter fluoroscopy. After satisfactory positioning of the needle and negative aspiration for CSF, blood, or any other contents, a total of 15 mL of 0.25 % preservative-free ropivacaine mixed with 20 mg of Depo-Medrol was injected with 5 ml increments and intermittent aspiration. Washout of the dye was seen and the needle was then withdrawn intact. Procedure was done bilaterally using the same technique on the right and left sides. A total of 30 ml of 0.25% preservative- free ropivacaine was used during the procedure.At the end of the procedure, the operated areas were cleaned. Band-Aids were applied. COMPLICATIONS: None DISPOSITION / PLANS: The patient was placed in a supine position and transferred to the recovery area in a stable condition for observation and was discharged from the recovery room after meeting discharge criteria.Home discharge instructions given to the patient by the staff.The patient was reexamined prior to discharge. We will schedule a neurolytic block in one week if patient has more than 50% pain relief from this block. Procedure first was attempted with 7 inch 22-gauge Quincke type spinal needle but the needle was very flexible than the I used a 20-gauge 6 inch needle.
[2023-05-25 10:35] VITALS: BP 127/63; PULSE 81
== END 2023-05-25 10:20 | disposition home or self-care (01) ==
LOC: ORPAIN 07:23
PROVIDERS: ATTEND Specialist
DX: K66.0 Peritoneal adhesions (postprocedural) (postinfection) (principal); G89.29 Other chronic pain
CPT/HCPCS: 85610; 64530; 99152; J2250; J1030; J3010; Q9966; J2795; 99153

== ENCOUNTER → 2023-06-12 | Outpatient (CLI) | payer MEDICARE ==
[2023-06-12 12:56] VITALS: BP 162/95; PULSE 79; RESP 16; TEMP 97.3
--- NOTE | 2023-06-12 14:22 | P.PAINPG ---
Objective - Vital Signs Vital signs: Intake & Output 06/11/23 06/12/23 06/12/23 18:59 06:59 18:59 Weight 117.48 kg PQRS Measure Charge Sheet Comment: HISTORY OF PRESENT ILLNESS: A 68 yr old male w at side presents today w severe and chronic LBP and L hip pain x 2 yrs secondary to DJD, DDD, spondylosis and facet arthropathy without myelopathy and Abd pain secondary to abd trauma and adhesions for evaluation s/p Celiac Plexus Block #2. Pt states he experienced 80% pain relief x 3 wks s/p procedure. Pt states pain level is provoked at 2 /10 in intensity, constant, localized in the abdomen, achy in character with occasional shooting pain towards the L abdomen. Pain is provoked by movement. Pain is alleviated by injections, PT x 12 wks in 2021 (lumbar), physician guided exercises/ stretches daily since 2021 (lumbar), heat, medications, CBD edibles, topical, repositioning and rest. Oswestry axial pain score of 23 (lumbar). Interventional procedures include Celiac Plexus Nerve Block x2, L SI x1 Medications include [place], Neurontin, Robaxin, Ibu, Tyl REVIEW OF ORGAN SYSTEMS: CONSTITUTIONAL: No fevers or chills. No recent weight loss. NEUROLOGICAL: + numbness and tingling along the distal extremities. No seizure disorders or headaches. MUSCULOSKELETAL: + pain PSYCHIATRIC: Denies current depression or suicidal thoughts. Physical Examinations : Constitutional : Cooperative , not in acute distress . Neurologic : Cranial nerve II to XII intact. No focal neurological deficits. Psychiatric : alert & oriented x 3. Matching mood & appropriate affect. Judgment & insight intact. Musculoskeletal : Cervical Spine Motor strength in the deltoid and biceps: Normal right side. Normal Left side Motor strength biceps and the wrist extensors: Normal right side . Normal left side Motor strength in the triceps muscle: Normal right side. Normal left side Deep tendon reflexes: Normal at the biceps. Normal at Brachioradialis. Normal at triceps Vertebral body tenderness to deep palpation over Cervical facet loading test: positive bilaterally Spurling test: positive bilaterally Neck distraction test: positive bilaterally Janice sign: positive bilaterally Lumbar spine Motor strength lower extremities ,thigh and legs 5/5 Right side , 5/5 Left side Deep tendon reflexes : Normal Knee Jerk. Normal Ankle Jerk Vertebral body tenderness over Lindsey Test positive Lumbar facet Loading Test: positive Right / positive Left Range of motion of the lumbar spine Flexion 30 degrees, extension 10 degrees Straight Leg Raise test: Left/ Right positive at degree Ryan test: positive right / positive left. Severe tenderness over the Sacroiliac joint on the Right / Left sides Gaenslen test: positive bilaterally Seated flexion test: positive bilaterally. Sacral spine : Severe tenderness over the Sacroiliac joint: right side / left side Range of motion: Flexion of the lumbar spine <60 degrees Range of motion: Extension of the lumbar spine <20 degrees Gaenslen's Test positive on L Ryan test: positive right side / left side Thigh Thrust Test positive on L Sacral Thrust Test Imaging: CT with contrast of the abdomen from 09/22/22 reviewed Assessment/ Plan : L hip pain secondary to DJD, DDD, spondylosis and facet arthropathy without myelopathy, Abd Trauma s/p Adhesions Will manage residual pain and may RTC on an as needed basis. All questions answered. I have spent greater than 30 minutes on patient care today. Dr Chatterjee was available by phone for the evaluation of this patient. The time was used to review the medical records including relevant urine studies and Prescription history (MAPs), review of the available imaging, evaluation and examination of the patient, coordination of care with the medical staff and if applicable referring physicians, as well as creation of the medical record PQRS Narrative: Hx Alcohol Use (MH) No Home Medications: Ambulatory Orders Acetaminophen [Tylenol Arthritis] 650 mg PO HS PRN 10/31/22 Atorvastatin [Lipitor] 10 mg PO HS 10/31/22 Dapagliflozin Propanediol [Farxiga] 10 mg PO DAILY 10/31/22 Exenatide Microspheres [Bydureon Bcise Auto-Injector] 2 mg SQ Q7D 10/31/22 Gabapentin [Neurontin] 300 mg PO TID 10/31/22 Hyoscyamine Sulfate [Levsin] 0.125 mg PO Q4HR PRN 10/31/22 Insulin Glargine,Hum.rec.anlog [Basaglar Kwikpen U-100] 35 unit SQ BID 10/31/22 Insulin Lispro [humaLOG Kwikpen] 10 unit SQ AC-BID 10/31/22 Magnesium Oxide [Magnesium] 500 mg PO TID 10/31/22 Meclizine [Antivert] 25 mg PO DIRECTED PRN 10/31/22 Metoprolol Succinate (ER) [Toprol Xl] 50 mg PO DAILY 10/31/22 Omeprazole [PriLOSEC] 20 mg PO AC-BID 10/31/22 Pioglitazone [Actos] 15 mg PO DAILY 10/31/22 Warfarin [Coumadin] 5 mg PO DAILY 10/31/22 azaTHIOprine [Imuran] 100 mg PO DAILY 10/31/22 hydrOXYzine HCL [Atarax] 50 mg PO HS PRN 10/31/22 ondansetron HCL [Zofran] 8 mg PO Q8HR PRN 10/31/22 methocarbamoL [Robaxin-750] 1,500 mg PO TID PRN #30 tab 03/29/23 Escitalopram [Lexapro] 10 mg PO HS 05/04/23 Ibuprofen 800 mg PO Q8H PRN 60 Days #60 tab 05/10/23 Controlled Substance Measures - Controlled Substance Measures Is patient prescribed a controlled substance at discharge?: No
== END | disposition home or self-care (01) ==
LOC: PNWHC3 12:12
PROVIDERS: ATTEND Specialist
DX: S39.91XA Unspecified injury of abdomen, initial encounter (principal); M25.551 Pain in right hip; M16.11 Unilateral primary osteoarthritis, right hip; M47.816 Spondylosis without myelopathy or radiculopathy, lumbar region; Z88.0 Allergy status to penicillin; Z91.011 Allergy to milk products; Z88.3 Allergy status to other anti-infective agents; Z91.018 Allergy to other foods
CPT/HCPCS: 99211